=== PATIENT | male | born 1970 | race Caucasian/White ===

== ENCOUNTER 2020-08-27 14:14 | Outpatient (REF) | payer OTHER, SELFPAY ==
--- NOTE | ~2020-08-27 | XR_ITS ---
EXAMINATION: XR CHEST CLINICAL INFORMATION: Redness of breath. COMPARISON: None TECHNIQUE: 2 views of the chest were obtained. FINDINGS: The lungs are slightly hyperinflated but clear of acute process. The heart size and pulmonary vascularity is normal. No gross bony abnormality seen. XR/XR chest 2V IMPRESSION: Hyperinflated lungs with no acute process.
[2020-08-27 16:31] LABS: Hemoglobin 13.9 g/dl (14.0-18.0); Mean Corpuscular HGB Conc 32.3 g/dl (31.0-36.0); Mean Corpuscular Hemoglobin 29.2 pg (27.0-33.0); Mean Corpuscular Volume 90.3 fL (80-98); Mean Platelet Volume 12.8 fL (9.4-12.4); Platelet Count 152 X10*3/uL (160-400); Red Blood Count 4.76 X10*6/uL (4.60-5.80)
[2020-08-27 16:54] LABS: Anion Gap 10 (12-20); Blood Urea Nitrogen 18 mg/dL (9-16); Calcium 9.1 mg/dL (8.4-10.2); Carbon Dioxide 33 mmol/L (22-29); Chloride 101 mmol/L (96-108); Estimated Glomerular Filt Rate > 60; Glucose Random 93 mg/dL (60-115); Potassium 4.3 mmol/L (3.3-5.1); Sodium 140 mmol/L (135-145)
[2020-08-27 16:58] LABS: Troponin-I High Sensitivity < 3.5 ng/L (<3.5-35.0)
== END 2020-08-27 14:15 | disposition home or self-care (01) ==
LOC: HO.HMGCX 14:14
PROVIDERS: PCP Family Medicine; Visit Provider Nurse Practitioner Family
DX: R06.02 Shortness of breath (principal)
CPT/HCPCS: 36415; 71046; 80048; 84484; 85027

== ENCOUNTER 2020-08-27 14:33 | Outpatient (REF) | payer OTHER, SELFPAY | END 2020-08-27 14:34 | disposition home or self-care (01) | LOC: HO.LAB 14:33 | PROVIDERS: Visit Provider Nurse Practitioner Family | DX: R06.02 Shortness of breath (principal); Z20.822 Contact with and (suspected) exposure to COVID-19 | CPT/HCPCS: 36415; U0003; U0005 ==

== ENCOUNTER 2020-10-29 08:54 | Outpatient (REF) | payer OTHER, SELFPAY ==
--- NOTE | ~2020-10-29 | CT_ITS ---
EXAMINATION: CT ANGIOGRAM CHEST CLINICAL INFORMATION: Shortness of breath. COMPARISON: Chest radiograph 08/27/2020 TECHNIQUE: Multiple axial images were obtained through the chest after the administration of 50 mL of Omnipaque 350 intravenous contrast. Images were not evaluated on an independent dedicated 3-D workstation and 3-D images were not reconstructed . Additional 2-D coronal and sagittal reformatted images and axial 3-D maximum intensity projection MIP images are generated on the CT workstation. This CT examination was performed using dose optimization techniques as appropriate, variously including the following: *Automated exposure control *Adjustment of mA and/or kV according to patient size (this includes techniques or standardized protocols for targeted exams where dose is matched to indication/reason for exam; i.e. extremities or head) *Use of iterative reconstruction technique DLP: 126 mGy-cm VASCULAR FINDINGS: The pulmonary arteries are extremely well seen and there is no evidence of main or segmental pulmonary emboli. Thoracic aortic arch appears normal with 3-vessel branching pattern. There is no evidence of aortic aneurysm or dissection. Maximal dimension of the ascending aorta is 3 cm. The small visualized portion of the abdominal aorta appears normal as do the celiac origin, SMA origin and renal artery origins. NONVASCULAR FINDINGS: MEDIASTINUM: Mild tracheomegaly is present. The heart size is normal. Small pretracheal and precarinal lymph nodes are present along with some small hilar nodes. No mediastinal or hilar lymphadenopathy present. LUNGS: Marked bilateral bronchiectasis is seen throughout the lungs. Some tree-in-bud inflammatory changes are present in both lower lobes as well as in the left upper lobe. Calcified granuloma noted in the right lower lobe. No single suspicious lung masses seen. PLEURA: There is no pleural effusion. No pleural mass or thickening. AXILLA: No lymphadenopathy. UPPER ABDOMEN: Unremarkable. Small splenule is present. OSSEOUS STRUCTURES: Unremarkable. CT/CT angio chest IMPRESSION: No evidence of pulmonary emboli. Normal-appearing aortic arch with three-vessel branching pattern. Tracheomegaly and marked bilateral bronchiectasis. Somewhat diffuse [id number]-type abnormality consistent with airway disease.
[2020-10-29 10:24] LABS: Blood Urea Nitrogen 18 mg/dL (9-16); Estimated Glomerular Filt Rate > 60
[2020-10-29] MEDS: iohexoL 350 MG/ML 100 ML INFUS..BTL IV (12:52)
== END 2020-10-29 08:55 | disposition home or self-care (01) ==
LOC: HO.CT 08:54
PROVIDERS: PCP Family Medicine; Visit Provider Nurse Practitioner Family
DX: R06.02 Shortness of breath (principal)
CPT/HCPCS: 36415; 71275; 82565; 84520; Q9967

== ENCOUNTER → 2022-07-20 13:57 | Outpatient (BNVA) | payer OTHER, SELFPAY | PROVIDERS: PCP Family Medicine; Visit Provider Nurse Practitioner Family | DX: Z13.89 Encounter for screening for other disorder (principal) ==